=== PATIENT | female | born 1935 | race Caucasian/White ===

== ENCOUNTER 2018-04-18 10:23 | Emergency (ER) | payer MEDICARE, OTHER ==
[~2018-04-18] VITALS: Ht 157.5 cm; Wt 54.0 kg
[2018-04-18 10:33] VITALS: Ht 157.5 cm; Wt 54.0 kg
[2018-04-18] MEDS ORDERED: SOD CHLORIDE 0.9% 1,000 ML IV STA (10:39)
[2018-04-18] MEDS ORDERED: MECLIZINE 12.5 MG TAB PO ONE (11:00)
[2018-04-18] MEDS ORDERED: GLIP10TA14 PO (11:10)
[2018-04-18] MEDS ORDERED: ATOR40TA68 PO (11:10)
[2018-04-18] MEDS ORDERED: DOXA4TAB2 PO (11:10)
[2018-04-18] MEDS ORDERED: CARV12.579 PO (11:10)
[2018-04-18] MEDS ORDERED: EMPA10TA PO (11:11)
[2018-04-18] MEDS ORDERED: AMLO5TAB4 PO (11:11)
[2018-04-18] MEDS ORDERED: LOSA1TAB25 PO (11:11)
--- NOTE | 2018-04-18 12:53 | ERD ---
ER Documentation Chief Complaint Chief Complaint dizziness HPI This is an 83-year-old female with a history of hypertension and non-insulin- dependent diabetes mellitus. Patient presents to the emergency department brought in by EMS after she developed a sudden onset of dizziness just prior to arrival. She stated she felt as though the room was spinning around her. She felt as though she was in a pass out but did not have a complete transient loss of consciousness. She indicated she had not taken her antihypertensive medicat ions this morning due to her symptoms. She had no fevers or shaking or chills. She denies a headache. She has no chest pain or pressure. EMS stated when they arrived the patient was hypotensive and bradycardic with a blood pressure of systolic of 90 and a heart rate of 50. ROS All systems reviewed and are negative except as per history of present illness. Medications Home Meds Reported Medications Empagliflozin (Jardiance) 10 Mg Tablet, 10 MG PO QAM, TAB 04/18/18 Losartan-Hydrochlorothiazide (Losartan-HCTZ) 100-25 Mg Tab, 1 TAB PO DAILY, TAB 04/18/18 Amlodipine Besylate* (Norvasc*) 5 Mg Tablet, 5 MG PO DAILY, TAB 04/18/18 Atorvastatin* (Atorvastatin*) 40 Mg Tablet, 40 MG PO QHS, #30 TAB 04/18/18 Doxazosin Mesylate* (Cardura*) 4 Mg Tablet, 4 MG PO QHS, #30 TAB 04/18/18 Glipizide* (Glipizide*) 10 Mg Tablet, 10 MG PO BID, TAB 04/18/18 Carvedilol* (Carvedilol*) 12.5 Mg Tablet, 12.5 MG PO BID, #60 TAB 04/18/18 Allergies Allergies: Coded Allergies: No Known Allergy (Unverified , 04/18/18) PMhx/Soc Medical and Surgical Hx: pt denies Surgical Hx History of Surgery: No Anesthesia Reaction: No Hx Neurological Disorder: No Hx Respiratory Disorders: No Hx Cardiac Disorders: Yes (HTN) Hx Psychiatric Problems: No Hx Miscellaneous Medical Probl: Yes (DM, HLD) Hx Alcohol Use: No Hx Substance Use: No Hx Tobacco Use: No Smoking Status: Never smoker Physical Exam Vitals Vital Signs Date Temp Pulse Resp B/P (MAP) Pulse Ox O2 O2 Flow FiO2 Time Delivery Rate 04/18/18 75 16 126/67 96 Room Air 12:00 (86) 04/18/18 97.5 60 14 123/51 97 10:33 (75) 04/18/18 60 20 123/51 98 Room Air 10:32 (75) Physical Exam Constitutional:Well-developed. Well-nourished. HEENT:Normocephalic. Atraumatic.Pupils were equal round reactive to light. Moist mucous membranes.No tonsillar exudates. Neck: No nuchal rigidity. No lymphadenopathy. No posterior cervical spine tenderness or step-offs. Respiratory: Not using accessory muscles of respiration.Lungs were clear to auscultation bilaterally. No rhonchi. No rales. No wheezing. Cardiovascular: Regular rate regular rhythm.No murmurs. No rubs were appreciated.S1, S2 normal. Distal pulses are palpable 2+ bilaterally. GI: Abdomen was soft. Nontender. Non Distended. No pulsatile abdominal masses or bruits. No rebound. No guarding. Bowel sounds were present and normal. Muscle skeletal: Full range of motion of both the upper and lower extremities bilaterally.Normal muscle tone.No assymetrical calf tenderness or swelling. Skin: No petechia, no purpura. No lesions on the palms or the soles of the feet. No maculopapular rash. NEURO: Patient was alert, awake, orientated x3.No facial droop. Gait observed and normal with no ataxia.Speech had regular rate and rhythm. No focal neurological deficits. No nystagmus Result Diagram: 04/18/18 1049 04/18/18 1049 Results 24 hrs Laboratory Tests Test 04/18/18 10:49 White Blood Count 7.6 10^3/ul Red Blood Count 3.99 10^6/ul Hemoglobin 11.1 g/dl Hematocrit 35.7 % Mean Corpuscular Volume 89.5 fl Mean Corpuscular Hemoglobin 27.8 pg Mean Corpuscular Hemoglobin Concent 31.1 g/dl Red Cell Distribution Width 11.8 % Platelet Count 199 10^3/UL Mean Platelet Volume 9.1 fl Immature Granulocytes % 0.300 % Neutrophils % 66.7 % Lymphocytes % 23.6 % Monocytes % 6.8 % Eosinophils % 2.1 % Basophils % 0.5 % Nucleated Red Blood Cells % 0.0 /100WBC Immature Granulocytes # 0.020 10^3/ul Neutrophils # 5.1 10^3/ul Lymphocytes # 1.8 10^3/ul Monocytes # 0.5 10^3/ul Eosinophils # 0.2 10^3/ul Basophils # 0.0 10^3/ul Nucleated Red Blood Cells # 0.0 10^3/ul Prothrombin Time 21.7 Sec Prothrombin Time Ratio 1.7 INR International Normalized Ratio 1.88 Activated Partial Thromboplast Time 38.5 Sec Sodium Level 136 mmol/L Potassium Level 4.6 mmol/L Chloride Level 100 mmol/L Carbon Dioxide Level 26 mmol/L Anion Gap 10 Blood Urea Nitrogen 23 mg/dl Creatinine 0.95 mg/dl Est Glomerular Filtrat Rate mL/min mL/min Glucose Level 307 mg/dl Calcium Level 8.8 mg/dl Total Bilirubin 0.4 mg/dl Direct Bilirubin 0.00 mg/dl Indirect Bilirubin 0.4 mg/dl Aspartate Amino Transf (AST/SGOT) 29 IU/L Alanine Aminotransferase (ALT/SGPT) 17 IU/L Alkaline Phosphatase 71 IU/L Creatine Kinase 34 IU/L Creatine Kinase Index 0.6 Creatinine Kinase MB (Mass) < 0.22 ng/ml Troponin I < 0.012 ng/ml B-Type Natriuretic Peptide 157 PG/ML Total Protein 7.2 g/dl Albumin 3.7 g/dl Globulin 3.50 g/dl Albumin/Globulin Ratio 1.05 Current Medications Medications Dose Sig/Suleiman Start Time Status Last (Trade) Ordered Route PRN Stop Time Admin Dose Reason Admin Sodium 1,000 ml @ Q1H STAT 04/18/18 DC 04/18/18 Chloride 1,000 mls/hr IV 10:39 10:58 04/18/18 11:38 Meclizine 25 mg ONCE ONCE 04/18/18 DC 04/18/18 HCl PO 11:00 10:58 (Antivert) 04/18/18 11:01 Procedures/MDM This patient was seen and evaluated by myself. The patient presented to the emergency department complaining of dizziness. My differential diagnosis included but was not limited to hypovolemia, myocardial infarction, pulmonary embolism, hypoglycemia, hypoxia, anemia, vasovagal episode, hypothyroidism, anxiety, peripheral or central vertigo. The patient was placed on a night monitor, continuous pulse oximetry and IV access established by nursing staff. The patient was given a liter bolus of normal saline. Patient was hyperglycemic without ketosis. This was also used to treat the hyperglycemia. The patient no severe electrolyte abnormalities. 12 Lead EKG tracing ordered and reviewed by myself showed: Sinus bradycardia 56 bpm and no arrhythmia. OH interval normal. QRS duration normal. No ST segment elevation No ST segment depression. No changes consistent with acute ischemia. I obtained a chest radiograph which showed mild cardiomegaly but no infiltrates or pneumothorax. I obtained a CT scan of the patient's head which showed no intracerebral hemorrhage mass-effect or midline shift. I indicated to the patient that I felt her dizziness could be a result of hypotension at the time but the patient showed no focal neurological deficits to suggest a cerebrovascular accident. The patient had no murmurs or cardiac arrhythmias. Her symptoms had improved after she received Antivert. She states she felt comfortable being discharged home with follow-up with her primary care physician. The patient was discharged home in fair condition. They were instructed to return to the emergency department at any time if there was any worsening of their condition. The patient stated they would follow up with their PCP in the next 24-48 hours to initiate a suitable medication regimen under the care of their PCP as well as to allow their PCP to monitor any drug reactions. The patient was discharged home with prescriptions after they gave informed consent to the new medication. They were also fully informed by myself on the adverse effects and adverse drug interactions in order to provide adequate safeguards to prevent possible adverse reactions to medications. Departure Diagnosis: Primary Impression: Dizziness Additional Impression: Hyperglycemia without ketosis Condition: SARAHI Fuentes MD Apr 18, 2018 12:53
[2018-04-18] MEDS ORDERED: MECL12.574 PO (12:55)
[2018-04-18 14:07] VITALS: BP 132/68; PULSE 75; RESP 16
== END 2018-04-18 14:57 | disposition home or self-care (01) ==
LOC: E/R 10:23
DX: R42 Dizziness and giddiness (principal); E11.65 Type 2 diabetes mellitus with hyperglycemia; I10 Essential (primary) hypertension; R07.9 Chest pain, unspecified; Z79.84 Long term (current) use of oral hypoglycemic drugs
CPT/HCPCS: 36415; 70450; 71045; 80053; 82550; 82553; 83880; 84484; 85025; 85610; 85730; 93005; J7030; Z7502; Z7610